=== PATIENT | female | born 1985 | race Caucasian/White ===

== ENCOUNTER 2017-07-23 08:08 | Emergency (ER) | payer OTHER ==
--- NOTE | 2017-07-23 08:19 | UC ---
Complaint Female HPI - HPI Summary HPI Summary: 32 y/o female presents to the urgent care c/o frequency and burning on urination since last night. Pt took 2 azo tabs PO and 2 tabs this morning to alleviate symptoms. LMP: 07/19/2017 she still has her period now. Pt denies fever, lower back pain, pelvic pain, abdominal pain, N/V/d, vaginal discharge, Hx of STD's. Pt has Hx of recurrent UTI. - History Of Current Complaint Stated Complaint: BLADDER INFECTION Time Seen by Provider: 07/23/17 08:15 Hx Obtained From: Patient Onset/Duration: Gradual Onset, Lasting Days - 1 day, Still Present Timing: Intermittent Severity Initially: Mild Severity Currently: None Pain Intensity: 2 Pain Scale Used: 0-10 Numeric Character: Burning Aggravating Factor(s): Urination Alleviating Factor(s): Other - Azo Associated Signs And Symptoms: Negative: Fever, Back Pain, Vaginal Bleeding/ Discharge - Risk Factors Ectopic Risk Factor: Negative Ovarian Torsion Risk Factor: Negative - Allergies/Home Medications Allergies/Adverse Reactions: Allergies Allergy/AdvReac Type Severity Reaction Status Date / Time No Known Allergies Allergy Verified 07/23/17 08:24 Home Medications: Home Medications Cranberry (Vaccinium Macrocarp [Cranberry] 07/23/17 [History] Pumpkin Seed-Soy Germ [Azo Bladder Control/Go-Le] 07/23/17 [History] PMH/Surg Hx/FS Hx/Imm Hx Previously Healthy: Yes - Pt denies PMHX - Family History Known Family History: Positive: Hypertension - Social History Occupation: Employed Full-time Lives: With Family Review of Systems Constitutional: Negative Skin: Negative Eyes: Negative ENT: Negative Respiratory: Negative Cardiovascular: Negative Gastrointestinal: Negative Genitourinary: Dysuria, Frequency Motor: Negative Neurovascular: Negative Musculoskeletal: Negative Neurological: Negative Psychological: Negative Is Patient Immunocompromised?: No All Other Systems Reviewed And Are Negative: Yes Physical Exam Triage Information Reviewed: Yes - Additional Comments VITAL SIGNS: Reviewed. GENERAL: Patient is a well developed and nourished female who is sitting comfortable in the examining table. Patient is not in any acute respiratory distress. HEAD AND FACE: No signs of trauma. No ecchymosis, hematomas or skull depressions. No sinus tenderness. EYES: PERRLA, EOMI x 2, No injected conjunctiva, clear watery eyes, no nystagmus. No photophobia. EARS: Hearing grossly intact. Ear canals and tympanic membranes are within normal limits. MOUTH: pharynx with no erythema, no exudates,no palatal petechiae. no B/L tonsillar enlargement Uvula in midline. NECK: Supple, trachea is midline, no lymphadenopathy, no JVD, no carotid bruit, no c-spine tenderness, neck with full ROM. CHEST: Symmetric, no tenderness at palpation LUNGS: Clear to auscultation bilaterally. No wheezing or crackles. CVS: Regular rate and rhythm, S1 and S2 present, no murmurs or gallops appreciated. ABDOMEN: Soft, non-tender. No signs of distention. No rebound no guarding, and no masses palpated. Bowel sounds are normal. BACK:no scoliosis or lesions, non tender to palaption, No B/L CVA tenderness EXTREMITIES: FROM in all major joints, no edema, no cyanosis or clubbing. NEURO: Alert and oriented x 3. No acute neurological deficits. Speech is normal and follows commands. SKIN: Dry and warm Complaint Female Dx - Course Course Of Treatment: 32 y/o female presents to the urgent care c/o frequency and burning on urination since last night. Pt took 2 azo tabs PO and 2 tabs this morning to alleviate symptoms. LMP: 07/19/2017 she still has her period now. Pt denies fever, lower back pain, pelvic pain, abdominal pain, N/V/d, vaginal discharge, Hx of STD's. Pt has Hx or recurrent UTI. Hx obtained. PE: WNL. UA ordered. However Pt took Azo. Nurse states urine doesn't look orange. UA results: Leukoesterase 1+. Pt denies vaginal D/C. Pt request ABX Tx, eventhough UA almos negative. Pt Rx Macrobid 100mg PO x 5 days and to continue taking Pyridium 100mg PO TID x 1 day. Advised to increase fluid intake. Urine sent for culture to r/o UTI since she was on Azo. if any abnormality Pt will be notified for further treatment. Pt advised If symptoms do not improve to return to the urgent care or f/u with PCP. Pt understood and agreed. Left the clinic ambulating. - Differential Dx/Diagnosis Differential Diagnosis/HQI/PQRI: Cervicitis, Pelvic Inflammatory Disease, Renal Colic, Sexually Transmitted Disease, Urinary Tract Infection Provider Diagnoses: 1- UTI. 2- Dysuria Discharge - Discharge Plan Condition: Stable Disposition: HOME Prescriptions: Nitrofurantoin Monohyd Macro [Macrobid] 100 mg PO BID #10 cap Patient Education Materials: Urinary Tract Infection in Women (ED) Referrals: [facility] [Outside] - If Needed Additional Instructions: 1- Please take Macrobid 100mg PO x 5 days. continue taking Pyridium for 1 more day to alleviate urinary symptoms. Increase increase fluid intake. drink cranberry juice. 2-Urine sent for culture if any abnormality, you will be notified for further treatment. 3-If symptoms do not improve please return to the urgent care or f/u with her PCP.
[2017-07-23 08:24] VITALS: BP 96/51
--- NOTE | 2017-07-25 14:53 | UC ---
Progress - Progress Note Progress Note: Pt with + UTI - E. Colu pt on macrobid await sensitivity no change [facility] 07/25/17 [id number]
== END 2017-07-23 09:12 | disposition home or self-care (01) ==
LOC: UCEAST 08:08
DX: N39.0 Urinary tract infection, site not specified (principal); B96.20 Unspecified Escherichia coli [E. coli] as the cause of diseases classified elsewhere; R30.0 Dysuria
CPT/HCPCS: 81003; 87077; 87086; 87186; 99201; G0463

== ENCOUNTER 2018-07-09 00:08 | Inpatient (IN) | payer OTHER ==
--- NOTE | 2018-07-09 01:22 | HP ---
General Information - Reason for Visit Pt reports SROM with clear fluid at 1715. UCs began soon after, were mild at first. Pt waited at home until ctx became more frequent and stronger, now presents to L&D. - General Information Maternal Age: 32 Grav: 1 Para: 0 SAB: 0 IEA: 0 Estimated Due Date: 09/13/17 Determined By: LMP Gestational Age in Weeks/Days: 39 2/7 Maternal Blood Type and Rh: B Positive - Results this Serology/RPR Result: Non-Reactive Rubella Result: Immune HBsAg Result: Negative HIV Result: Negative GBS Culture Result: Negative Past Medical History Delivery History: See Records - Primigravida Pertinent Past Medical History: Non-Contributory Pertinent Past Surgical History: None Pertinent Family History: See Records - FOB w/ family hx leukodystrophy - Antepartal Records Antepartal Records: Reviewed, Uncomplicated Review of Systems Constitutional: Comfortable CV Complaint: No Respiratory: Shortness of Breath: No Gastrointestinal: No Nausea/Vomiting, Normal Bowel Movement Genitourinary: Leaking Fluid, No Dysuria, No Bleeding Musculoskeletal: No Complaint, No Epigastric Pain Neurological: No Headache, No Visual Changes Movement: Normal Exam Allergies/Adverse Reactions: Allergies No Known Allergies Allergy (Verified 07/09/18 00:42) T-99.1, P-68, R-20, BP-110/61, O2-99% - Measurements Height: 5 ft 6 in Weight: 75.75 kg Body Mass Index (BMI): 26.9 Pre- Weight: 67.585 kg - Exam Breast: Breast Exam Deferred CVA: No CVA Tenderness Extremities: No Edema Heart: Normal Rhythm/Heart Sounds HEENT: No Significant Findings Lungs: Clear Bilaterally Rectal: Rectal Exam Deferred Reflexes: DTR 2+ Thyroid: No Thyromegaly - Abdominal Exam Abdomen Exam: Non-Tender - Ultrasound/Biophysical Profile Ultrasound Status: Not Done Targeted Exam Findings See L&D Outpatient Visit Provider Note for Findings: N/A Estimated Weight: 7# Membrane Status: SROM Amniotic Fluid Evaluation: Gross Rupture Bleeding/Discharge: None - Pt declined cervical exam at this time EFM Findings - External Monitor Findings Baseline Heart Rate: 135 External Monitor Findings: Accelerations Present, No Pattern of Variable or Late Decelerations, Variability Moderate, Baseline Stable Contractions: Regular, Mild, 45-90 Seconds Contraction Frequency: 2-5 Assessment/Plan - Assessment 32 year old at 39 2/7 weeks gestation with ruptured membranes, clear fluid , dashawn. Pt declined cervical exam so unclear if active versus early labor. No evidence of acidemia. Afebrile. - Plan Plan: Admit - Anticipate Vaginal Delivery Plan Comment: Pt counseled that prolonged rupture of membranes increases risk of infection and that recommended plan of care with rupture of membranes in the absence of active labor is to augment. Pt with strong preference to avoid induction/ augmentation if at all possible. Pt declined vaginal exam at this time. Pt agrees to have cervix checked in the morning if not delivered prior to that time. Currently using hypno-birthing audio, coping well with labor contractions. at bedside, supportive. - Date/Time of Admission Date of Admission: 07/09/18 Time of Admission: 00:30
--- NOTE | 2018-07-09 07:38 | PN ---
Progress Note - Progress Note Date of Service: 07/09/18 SOAP: Subjective: Pt breathing and moaning through ctx. Reports ctx every 2-3 minutes. Has been lying on her side in bed, using hypno-birthing audio. at bedside, supportive. Pt reports active FM. Objective: Cervix: 3cm/ 90%/ -1/ vtx FHR: 140 per auscultation, moderate variability UC's moderate to palpation, every 2-4 minutes observed Vital signs: BP 110/66, P-70, R-16, T-98.5 Assessment: 32 year old with membranes ruptured 14 hours, afebrile with no evidence of acidemia, entering active labor Plan: Expectant management. Continue to closely monitor pt's temperature and FHR for tachycardia or other signs of infection.
[2018-07-09 16:30] LABS: Hematocrit 37 % (35-47); Hemoglobin 12.9 g/dl (12.0-16.0); Mean Corpuscular HGB Conc 35 g/dl (31-36); Mean Corpuscular Hemoglobin 32 pg (27-31); Mean Corpuscular Volume 91 fL (80-97); Mean Platelet Volume 10.3 fL (7.4-10.4); Platelet Count 186 10^3/ul (150-450); Red Blood Count 4.07 10^6/ul (4.00-5.40); Red Cell Distribution Width 13 % (10.5-15); White Blood Count 22.6 10^3/ul (3.5-10.8)
[2018-07-09 16:52] LABS: ABS Basophils 0.1 10^3/ul (0-0.2); ABS Eosinophils 0 10^3/ul (0-0.6); ABS Lymphocytes 0.7 10^3/ul (1.0-4.8); ABS Monocytes 0.5 10^3/ul (0-0.8); ABS Neutrophils 21.3 10^3/ul (1.5-7.7); ABS Nucleated RBC 0 10^3/ul; Eosinophil % 0 % (0-6); Lymphocyte % 3.3 % (25-47); Nucleated Red Blood Cells % 0.1
[2018-07-09] MEDS ORDERED: Witch Hazel PAD* JAR TOPICAL PRN (20:46)
[2018-07-09] MEDS ORDERED: Dibucaine 1% 28.35 GM TUBE PR PRN (20:46)
[2018-07-09] MEDS ORDERED: Glycerin ADULT SUPP PR PRN (20:46)
[2018-07-09] MEDS ORDERED: Acetaminophen TAB* 325 MG PO PRN (20:46)
[2018-07-09] MEDS ORDERED: OXYTOCIN* 10 UNITS/ML 1 ML VIAL IM ONE (20:46)
--- NOTE | 2018-07-09 20:58 | PROCNOTE ---
[facility] OB: Delivery Note - Delivery A Date of : 07/09/18 Time of : 20:22 Sex: Male Score 1 Minute: 9 Score 5 Minutes: 9 Gestational Age in Weeks and Days at Delivery: 82 Weeks and 5 Days Delivery Method: Spontaneous Vaginal Labor: Spontaneous Amniotic Fluid: Clear Anesthesia/Analgesia: Nitrous-Labor - Nursery Level of Nursery: Regular/Bedside - Perineum Perineal Injury: Abrasion Only - Not Repaired, Periurethral Laceration Perineal Repair: None - Events Delivery Events of Note: ROM > 24 Hours - Additional Delivery Notes Additional Delivery Notes: Fully with urge to push at 1900. SVB LMC, OA over perineal abrasion and periurethral lac. pink with stimulation, vigorous cry. Placenta sara. Fundus firm with massage, pitocin 10 u IM. EBL 200cc. Laceration hemostatic and well approximated, not repaired. Mother and baby in good condition
[2018-07-09] MEDS: Ibuprofen TAB* 600 MG PO PRN (22:45)
[2018-07-10 06:13] LABS: Hematocrit 35 % (35-47); Mean Corpuscular HGB Conc 35 g/dl (31-36); Mean Corpuscular Hemoglobin 32 pg (27-31); Mean Corpuscular Volume 91 fL (80-97); Mean Platelet Volume 9.7 fL (7.4-10.4); Platelet Count 190 10^3/ul (150-450); Red Cell Distribution Width 13 % (10.5-15); White Blood Count 17.7 10^3/ul (3.5-10.8)
[2018-07-10] MEDS: Ibuprofen TAB* 600 MG PO PRN ×3 (07:58→20:03)
[2018-07-10] MEDS: Docusate CAP* 100 MG PO SCH ×3 (07:59→20:03)
[2018-07-10] MEDS ORDERED: Ferrous Gluconate TAB* 324 MG TAB PO SCH (09:00)
[2018-07-11] MEDS: Docusate CAP* 100 MG PO SCH ×4 (08:20→20:45)
[2018-07-11] MEDS: Ibuprofen TAB* 600 MG PO PRN ×2 (08:28→17:11)
[2018-07-12 08:09] VITALS: BP 117/68
[2018-07-12] MEDS: Ibuprofen TAB* 600 MG PO PRN (09:34)
[2018-07-12] MEDS: Docusate CAP* 100 MG PO SCH (09:34)
== END 2018-07-12 11:53 | disposition home or self-care (01) | DRG 807 ==
LOC: MCHOBOUT 00:08 → MCHOB 00:53
PROVIDERS: ADMIT Midwife; ATTEND Midwife
PROC: 10E0XZZ Delivery of Products of Conception, External Approach (ICD-10-PCS; principal; 2018-07-09)
PROC: 4A1HXCZ Monitoring of Products of Conception, Cardiac Rate, External Approach (ICD-10-PCS; 2018-07-09)
DX: O22.43 Hemorrhoids in pregnancy, third trimester (principal); Z37.0 Single live birth; Z3A.39 39 weeks gestation of pregnancy; O71.82 Other specified trauma to perineum and vulva
CPT/HCPCS: 36415; 85025; 85027; 86850; 86900; 86901; A9270-GY; J2590